=== PATIENT | female | born 1935 | race Caucasian/White ===

== ENCOUNTER 2020-03-10 08:36 | Inpatient (IN) | payer MEDICARE, OTHER, SELFPAY ==
[2020-03-10 08:46] LABS: Add Manual Diff / Slide Review NO; Basophils Absolute Auto 200 /uL (0-100); Basophils Percent Auto 0.7 % (0-2); Eosinophils Absolute Auto 0 /uL (0-450); Eosinophils Percent Auto 0.1 % (2-4); Hematocrit 36.3 % (36-46); Hemoglobin 11.8 g/dL (12.0-16.0); Lymphocytes Absolute Auto 700 /uL (1100-4500); Lymphocytes Percent Auto 3.1 % (25-40); Mean Corpuscular HGB Conc 32.5 % (30-36); Mean Corpuscular Hemoglobin 31.3 PG (26-34); Monocytes Absolute Auto 900 /uL (0-900); Monocytes Percent Auto 4.3 % (3-14); Neutrophils Absolute Auto 20200 /uL (1500-7000); Neutrophils Percent Auto 91.8 % (50-75); Platelet Count 389 X10^3/uL (150-400); Red Blood Cell Count 3.78 X10^6/uL (4.0-5.2); Red Cell Distribution Width 13.4 % (11.6-14.8)
--- NOTE | 2020-03-10 08:46 | DI.CT.S_ITS ---
PROCEDURE: CT STROKE INDICATIONS: right weakness left gaze TECHNIQUE: Noncontrast 4.5 mm thick angled axial sections acquired from the foramen magnum to the vertex, with coronal reformats. For radiation dose reduction, the following was used: automated exposure control, adjustment of mA and/or kV according to patient size. COMPARISON: None. FINDINGS: Image quality: Excellent. CSF spaces: Basal cisterns are patent. A small acute subpleural hematoma is present in the left frontal area. The ventricles are dilated. There is partial effacement of left lateral ventricle Brain: There is a large acute intracranial hematoma in the left frontal lobe measuring 6.5 cm AP 4.6 cm transverse and 7.0 cm cephalocaudal. On the axial images, it appears to be centered in the brain suggesting intraparenchymal hematoma. On the coronal reconstructed images, the hematoma has a lentiform configuration, suggesting the possibility of epidural bleed. There is also subarachnoid hemorrhage with blood product within cerebral sulci. There is prominent mass effect and 5 mm rightward midline shift. There is moderate cerebral volume loss for age, with resultant ventricular and sulcal prominence. There are moderate periventricular and deep white matter chronic small vessel ischemic changes. There is intracranial internal carotid artery atherosclerosis. Skull and face: Calvarium and visualized facial bones appear intact, without suspicious lesions. Sinuses: Visualized sinuses and mastoids are clear. IMPRESSION: 1. A large intracranial hematoma is present in the left frontal area, most likely large intraparenchymal hemorrhage, measuring 6.5 cm AP 4.6 cm transverse and 7.0 cm cephalocaudal. There is also a small subdural hematoma and subarachnoid hemorrhage. There is mass effect and 5 mm rightward midline shift. 2. No skull fractures. The results were discussed with Dr. Evans. This study fulfills neurological imaging criteria for inclusion or exclusion of acute stroke therapies based on available published neurological guidelines. Dictated by: Aliyah Keith M.D. on 03/10/2020 at 8:51 Approved by: Aliyah Keith M.D. on 03/10/2020 at 9:06
[2020-03-10 08:52] VITALS: BP 142/92; PULSE 111; RESP 20; TEMP 36.4; O2SAT 97
[2020-03-10 08:52] LABS: Prothrombin Time 11.7 SECONDS (10.1-12.7)
[2020-03-10 08:55] LABS: PTT Partial Thromboplastin Tim 27 SECONDS (26.4-36.2)
[2020-03-10 08:57] LABS: BUN Creatinine Ratio 28.8 (6-22); Blood Urea Nitrogen 30 mg/dL (7-17); Calcium 9.9 mg/dL (8.4-10.2); Carbon Dioxide 24 mmol/L (22-32); Chloride 101 mmol/L (98-107); Estimated Glomerular Filt Rate 50.6 mL/min (>60); Glucose 208 mg/dL (80-110); HEMOLYSIS < 15 (0-50); Potassium 4.4 mmol/L (3.4-5.1); Sodium 137 mmol/L (137-145)
--- NOTE | 2020-03-10 08:57 | ED_ITS ---
HPI - Neuro Symptoms/Deficit General Chief Complaint: Neuro Symptoms/Deficit Stated Complaint: Stroke Time Seen by Provider: 03/10/20 08:37 Patient History Social History Smoking Status: Unknown if ever smoked Course Orders Ordered: ED Orders 03/10/20 08:38 Urine Drug Screen, Rapid Stat EKG-12 Lead Stat 03/10/20 08:43 Basic Metabolic Panel Stat Complete Blood Count AUTO DIFF Stat Partial Thromboplastin Time Stat Prothrombin Time INR Stat 03/10/20 08:46 CT Stroke Stat 03/10/20 08:52 XR chest 1V Stat XR pelvis 1-2V Stat 03/10/20 08:54 CT cervical spine wo con Stat Sodium Chloride (Normal Saline 0.9%) 1,000 mls @ 150 mls/hr IV CONT BALDEV MDM - Neuro Symptoms/Deficit Lab Data Result diagrams: 03/10/20 08:43 03/10/20 08:43 Labs: Lab Results 03/10/20 03/10/20 Range/Units 08:43 08:43 WBC 22.0 H (4.5-11.0) X10^3/uL RBC 3.78 L (4.0-5.2) X10^6/uL Hgb 11.8 L (12.0-16.0) g/dL Hct 36.3 (36-46) % MCV 96.0 (80-100) fL MCH 31.3 (26-34) PG MCHC 32.5 (30-36) % RDW 13.4 (11.6-14.8) % Plt Count 389 (150-400) X10^3/uL Neut % (Auto) 91.8 H (50-75) % Lymph % (Auto) 3.1 L (25-40) % [place] % (Auto) 4.3 (3-14) % Eos % (Auto) 0.1 L (2-4) % Baso % (Auto) 0.7 (0-2) % Neut # (Auto) 27210 H (0448-3218) /uL Lymph # (Auto) 700 L (7136-1988) /uL [place] # (Auto) 900 (0-900) /uL Eos # (Auto) 0 (0-450) /uL Baso # (Auto) 200 H (0-100) /uL PT 11.7 (10.1-12.7) SECONDS INR 1.0 (0.9-1.3) APTT 27 (26.4-36.2) SECONDS
[2020-03-10 09:00] VITALS: BP 156/91; PULSE 108; RESP 18; O2SAT 97
[2020-03-10 09:12] LABS: Ur Creatinine Normal (Normal); Ur Specific Gravity Normal (Normal); Urine pH Normal (Normal)
[2020-03-10 09:13] LABS: UR Morphine/Opiate cutoff 300 Negative (Negative); Urine Amphetamines Negative (Negative); Urine Barbiturates Negative (Negative); Urine Benzodiazepines Negative (Negative); Urine Cocaine Negative (Negative); Urine MDMA Negative (Negative); Urine Methadone Negative (Negative); Urine Methamphetamines Negative (Negative); Urine Oxycodone Negative (Negative); Urine Phencyclidine Negative (Negative); Urine Tetrahydrocannabinol Negative (Negative); Urine Tricyclic Antidepressant Negative (Negative)
[2020-03-10] MEDS: ONDANSETRON 4 MG/2 ML INJ IV (09:31)
--- NOTE | 2020-03-10 09:38 | PC.NURSE ---
nih scale- a lot of the scale is UN. pt is not able to perform the tasks. md at bedside
--- NOTE | 2020-03-10 09:50 | PC.NURSE ---
0905 Pt is a comfort only patient per Dr. Evans and the family.
--- NOTE | 2020-03-10 11:59 | ED_ITS ---
HPI - Neuro Symptoms/Deficit General Chief Complaint: Neuro Symptoms/Deficit Stated Complaint: Stroke Time Seen by Provider: 03/10/20 08:37 Source: family and EMS Mode of arrival: EMS History of Present Illness HPI Narrative: Patient is a 84-year-old female who presents being found down. She was last seen last evening she lives in independently with only medical history of hypertension. Her neighbor below her her to thought around 630 this morning staff finally got into her room and she presented to the emergency department by 837. She has a gaze to the left and not moving her right side. She is not on any known anti-platelet or anticoagulation medication. Related Data Home Medications Medication Instructions Recorded Confirmed lisinopril 03/10/20 Allergies Allergy/AdvReac Type Severity Reaction Status Date / Time No Known Drug Allergies Allergy Verified 03/10/20 09:30 Review of Systems Review of Systems ROS Unobtainable: Unobtainable due to mental status/LOC Patient History Social History household members: none Smoking Status: Never smoker alcohol intake: current Smoking Status: Unknown if ever smoked Exam Initial Vital Signs Initial Vital Signs: Vital Signs Temperature 97.5 F L 03/10/20 08:52 Pulse Rate 111 H 03/10/20 08:52 Respiratory Rate 20 03/10/20 08:52 Blood Pressure 142/92 H 03/10/20 08:52 Pulse Oximetry 97 03/10/20 08:52 Gen.: Atraumatic HEENT: Pupils equal and reactive gaze to the left no facial droop Neck: No JVD no cervical 10 step-off Lungs: Clear bilaterally Cardiac: Regular rate Abdomen: Soft nontender Extremities: Pelvis stable no gross bony deformity Neurologic: Profound weakness on the right side but not moving left side either. No facial droop case of the left. Initially was able to admitting officer with the left hand and not the right way goals both toes. Course Orders Ordered: Artificial Tears (Artificial Tears) 1 drops EYE-BOTH Q2HR PRN PRN Reason: Dry Eye(s) Sodium Chloride (Normal Saline 0.9%) 1,000 mls @ 150 mls/hr IV CONT BALDEV Last Admin: 03/10/20 09:57 Dose: Not Given Documented by: RSTONE Lorazepam (Ativan) 1 mg IV Q1HR PRN PRN Reason: Agitation/Anxiety Morphine Sulfate (Morphine) 2 mg IV Q30MIN PRN PRN Reason: Pain/Dyspnea Ondansetron HCl (Zofran) 4 mg IV Q4HR PRN PRN Reason: Nausea And Vomiting Scopolamine (Transderm-Scop) 1 patch TOP Q72H PRN PRN Reason: Secretions Discontinued Medications Ondansetron HCl (Zofran) 4 mg IV NOW ONE Stop: 03/10/20 09:07 Last Admin: 03/10/20 09:31 Dose: 4 mg Documented by: TOMMY Vital Signs Vital signs: Vital Signs - 8 hr 03/10/20 08:52 03/10/20 09:00 Temperature 97.5 F L Pulse Rate 111 H 108 H Respiratory Rate 20 18 Blood Pressure 142/92 H Blood Pressure [Left Arm] 156/91 H Pulse Oximetry 97 97 MDM - Neuro Symptoms/Deficit Lab Data Attestation: I reviewed the patient's lab results. Result diagrams: 03/10/20 08:43 03/10/20 08:43 Labs: Lab Results 03/10/20 03/10/20 03/10/20 Range/Units 08:43 08:43 08:43 WBC 22.0 H (4.5-11.0) X10^3/uL RBC 3.78 L (4.0-5.2) X10^6/uL Hgb 11.8 L (12.0-16.0) g/dL Hct 36.3 (36-46) % MCV 96.0 (80-100) fL MCH 31.3 (26-34) PG MCHC 32.5 (30-36) % RDW 13.4 (11.6-14.8) % Plt Count 389 (150-400) X10^3/uL Neut % (Auto) 91.8 H (50-75) % Lymph % (Auto) 3.1 L (25-40) % [place] % (Auto) 4.3 (3-14) % Eos % (Auto) 0.1 L (2-4) % Baso % (Auto) 0.7 (0-2) % Neut # (Auto) 49090 H (6865-4834) /uL Lymph # (Auto) 700 L (5653-0897) /uL [place] # (Auto) 900 (0-900) /uL Eos # (Auto) 0 (0-450) /uL Baso # (Auto) 200 H (0-100) /uL PT 11.7 (10.1-12.7) SECONDS INR 1.0 (0.9-1.3) APTT 27 (26.4-36.2) SECONDS Sodium 137 (137-145) mmol/L Potassium 4.4 (3.4-5.1) mmol/L Chloride 101 (98-107) mmol/L Carbon Dioxide 24 (22-32) mmol/L BUN 30 H (7-17) mg/dL Creatinine 1.04 (0.52-1.04) mg/dL Estimated GFR 50.6 L (>60) mL/min BUN/Creatinine Ratio 28.8 H (6-22) Glucose 208 H (80-110) mg/dL Calcium 9.9 (8.4-10.2) mg/dL U Opiates 300ng/mL cut (Negative) Ur Oxycodone Screen (Negative) Urine Methadone Screen (Negative) Ur Barbiturates Screen (Negative) U Tricyclic Antidepress (Negative) Ur Phencyclidine Scrn (Negative) Ur Amphetamines Screen (Negative) U Methamphetamines Scrn (Negative) Ur MDMA Scrn (Ecstasy) (Negative) U Benzodiazepines Scrn (Negative) Urine Cocaine Screen (Negative) U Marijuana (THC) Screen (Negative) 03/10/20 Range/Units 09:00 WBC (4.5-11.0) X10^3/uL RBC (4.0-5.2) X10^6/uL Hgb (12.0-16.0) g/dL Hct (36-46) % MCV (80-100) fL MCH (26-34) PG MCHC (30-36) % RDW (11.6-14.8) % Plt Count (150-400) X10^3/uL Neut % (Auto) (50-75) % Lymph % (Auto) (25-40) % [place] % (Auto) (3-14) % Eos % (Auto) (2-4) % Baso % (Auto) (0-2) % Neut # (Auto) (4506-7234) /uL Lymph # (Auto) (7329-9005) /uL [place] # (Auto) (0-900) /uL Eos # (Auto) (0-450) /uL Baso # (Auto) (0-100) /uL PT (10.1-12.7) SECONDS INR (0.9-1.3) APTT (26.4-36.2) SECONDS Sodium (137-145) mmol/L Potassium (3.4-5.1) mmol/L Chloride (98-107) mmol/L Carbon Dioxide (22-32) mmol/L BUN (7-17) mg/dL Creatinine (0.52-1.04) mg/dL Estimated GFR (>60) mL/min BUN/Creatinine Ratio (6-22) Glucose (80-110) mg/dL Calcium (8.4-10.2) mg/dL U Opiates 300ng/mL cut Negative (Negative) Ur Oxycodone Screen Negative (Negative) Urine Methadone Screen Negative (Negative) Ur Barbiturates Screen Negative (Negative) U Tricyclic Antidepress Negative (Negative) Ur Phencyclidine Scrn Negative (Negative) Ur Amphetamines Screen Negative (Negative) U Methamphetamines Scrn Negative (Negative) Ur MDMA Scrn (Ecstasy) Negative (Negative) U Benzodiazepines Scrn Negative (Negative) Urine Cocaine Screen Negative (Negative) U Marijuana (THC) Screen Negative (Negative) Point of Care Testing Glucose POC [address] scan - head: Radiologist's Impression: PROCEDURE: CT STROKE INDICATIONS: right weakness left gaze TECHNIQUE: Noncontrast 4.5 mm thick angled axial sections acquired from the foramen magnum to the vertex, with coronal reformats. For radiation dose reduction, the following was used: automated exposure control, adjustment of mA and/or kV according to patient size. COMPARISON: None. FINDINGS: Image quality: Excellent. CSF spaces: Basal cisterns are patent. A small acute subpleural hematoma is pr esent in the left frontal area. The ventricles are dilated. There is partial effacement of left lateral ventricle Brain: There is a large acute intracranial hematoma in the left frontal lobe measuring 6.5 cm AP 4.6 cm transverse and 7.0 cm cephalocaudal. On the axial images, it appears to be centered in the brain suggesting intraparenchymal hematoma. On the coronal reconstructed images, the hematoma has a lentiform configuration, suggesting the possibility of epidural bleed. There is also subarachnoid hemorrhage with blood product within cerebral sulci. There is prominent mass effect and 5 mm rightward midline shift. There is moderate cerebral volume loss for age, with resultant ventricular and sulcal prominence. There are moderate periventricular and deep white matter chronic small vessel ischemic changes. There is intracranial internal carotid artery atherosclerosis. Skull and face: Calvarium and visualized facial bones appear intact, without suspicious lesions. Sinuses: Visualized sinuses and mastoids are clear. IMPRESSION: 1. A large intracranial hematoma is present in the left frontal area, most likely large intraparenchymal hemorrhage, measuring 6.5 cm AP 4.6 cm transverse and 7.0 cm cephalocaudal. There is also a small subdural hematoma and subarachnoid hemorrhage. There is mass effect and 5 mm rightward midline shift. 2. No skull fractures. The results were discussed with Dr. Evans. This study fulfills neurological imaging criteria for inclusion or exclusion of acute stroke therapies based on available published neurological guidelines. Dictated by: Aliyah Keith M.D. on 03/10/2020 at 8: ECG Data Attestation: I personally reviewed and interpreted this ECG as follows: Interpretation: Normal sinus rhythm rate 108 right bundle-branch block noted no ST changes no priors to compare MDM Narrative Medical decision making narrative: Family at bedside family and patient were very clear that no extraordinary measures are to be taken. Comfort measures only. Discharge Plan Departure Patient Disposition: Admitted as Observation Clinical Impression: Subarachnoid hemorrhage, Subdural hematoma Discharge Date/Time: 03/10/20 12:06 Admit Date/Time: 03/10/20 11:10 Admit Provider: Pedro Luis Lipscomb
--- NOTE | 2020-03-10 12:54 | PM.HP.1 ---
History of Present Illness History of Present Illness Date Patient Seen: 03/10/20 Time Patient Seen: 12:54 Chief complaint: Stroke Narrative: Stacie Pickard is an 84 year old female with PMH of HTN who was found down in her apartment this morning. She had been living independently and doing well per family. She was last seen last evening she lives in independently with only medical history of hypertension. Her neighbor below her her to thought around 630 she heard a thud. Patient presented to the ER around 0830. She has a gaze to the left and not moving her right side. She is not on any known anti-platelet or anticoagulation medication. Patient does follow commands but is unable to communicate. Family at bedside to cooberate history along with review of provider notes. In the ER, vitals were notable for mild tachycardia. CT scan showed a large intracranial hematoma in the left frontal area most likely due to a large intraparenchymal hemorrhage measuring 6.5 x 4.6 x 7.0 cm. There is also a small subdural and subarachnoid hemorrhage. There was mass effect and 5 mm of rightward midline shift. There were no skull fractures. Patient was previously very clear on her desire for comfort measures only in this situation, family states that patient would definitely not want a feeding tube. She was admitted under observation status with comfort measures. CT scan will be repeated at 6 hours to see if there is any progression of her bleeding. Patient History Family & Social History Safety & Behavioral: Feels Safe in Current Unwilling to Answer Environment Been Physically Hurt or Unwilling to Answer Threatened By a Person Tobacco & Substance use: Smoking Status Unknown if ever smoked Meds Home Medications and Allergies Home Medications Medication Instructions Recorded Confirmed Type lisinopril 03/10/20 History Allergies Allergy/AdvReac Type Severity Reaction Status Date / Time No Known Drug Allergies Allergy Verified 03/10/20 09:30 Review of Systems Review of Systems ROS: Yes unobtainable due to mental status Exam Vital Signs (past 8 hours): - 03/10/20 08:52 03/10/20 09:00 Temperature 97.5 F L Pulse Rate 111 H 108 H Respiratory Rate 20 18 Blood Pressure 142/92 H Blood Pressure [Left Arm] 156/91 H Pulse Oximetry 97 97 Oxygen Delivery Method Room Air Narrative Exam Narrative: GENERAL APPEARANCE: Well developed, well nourished, elderly female in no acute distress. SKIN: Inspection of the skin reveals no rashes, ulcerations or petechiae. HEENT: Right cheek possible ecchymosis or small hematoma, mucosa is dry, there is no lymphadenopathy, oropharynx is clear. NECK: Supple and symmetric. There was no thyroid enlargement, and no tenderness, or masses were felt. CHEST: Normal AP diameter and normal contour without any kyphoscoliosis. LUNGS: Auscultation of the lungs revealed no wheezes, rhonchi, or rales. CARDIOVASCULAR: There was a tachycardic rate with regular rhythm without any murmurs, gallops, rubs. Peripheral pulses were 2+ and symmetric. ABDOMEN: Soft and nondistended. No ascites was noted. MUSCULOSKELETAL: There were no effusions noted. Unable to assess for pain. EXTREMITIES: No cyanosis, clubbing or edema. NEUROLOGIC: Left gaze bilaterally, pupils equally round and reactive bilaterally. Follows commands on the left side, but unable to speak. She has a right hemiparesis. Unable to assess sensation. No gross facial asymmetry, but patient does resist opening of her left eye, but not her right. Objective ECG Impression: Sinus tachycardia, rate 108, with a right bundle branch block. No evidence of active ischemia. Imaging CT scan - head: Radiologist's impression: IMPRESSION: 1. A large intracranial hematoma is present in the left frontal area, most likely large intraparenchymal hemorrhage, measuring 6.5 cm AP 4.6 cm transverse and 7.0 cm cephalocaudal. There is also a small subdural hematoma and subarachnoid hemorrhage. There is mass effect and 5 mm rightward midline shift. 2. No skull fractures. The results were discussed with Dr. Evans. Labs Result Diagrams: 03/10/20 08:43 03/10/20 08:43 Labs: Laboratory Results - last 24 hr 03/10/20 03/10/20 03/10/20 08:43 08:43 08:43 WBC 22.0 H RBC 3.78 L Hgb 11.8 L Hct 36.3 MCV 96.0 MCH 31.3 MCHC 32.5 RDW 13.4 Plt Count 389 Neut % (Auto) 91.8 H Lymph % (Auto) 3.1 L [place] % (Auto) 4.3 Eos % (Auto) 0.1 L Baso % (Auto) 0.7 Neut # (Auto) 08372 H Lymph # (Auto) 700 L [place] # (Auto) 900 Eos # (Auto) 0 Baso # (Auto) 200 H PT 11.7 INR 1.0 APTT 27 Sodium 137 Potassium 4.4 Chloride 101 Carbon Dioxide 24 BUN 30 H Creatinine 1.04 Estimated GFR 50.6 L BUN/Creatinine Ratio 28.8 H Glucose 208 H Calcium 9.9 U Opiates 300ng/mL cut Ur Oxycodone Screen Urine Methadone Screen Ur Barbiturates Screen U Tricyclic Antidepress Ur Phencyclidine Scrn Ur Amphetamines Screen U Methamphetamines Scrn Ur MDMA Scrn (Ecstasy) U Benzodiazepines Scrn Urine Cocaine Screen U Marijuana (THC) Screen 03/10/20 09:00 WBC RBC Hgb Hct MCV MCH MCHC RDW Plt Count Neut % (Auto) Lymph % (Auto) [place] % (Auto) Eos % (Auto) Baso % (Auto) Neut # (Auto) Lymph # (Auto) [place] # (Auto) Eos # (Auto) Baso # (Auto) PT INR APTT Sodium Potassium Chloride Carbon Dioxide BUN Creatinine Estimated GFR BUN/Creatinine Ratio Glucose Calcium U Opiates 300ng/mL cut Negative Ur Oxycodone Screen Negative Urine Methadone Screen Negative Ur Barbiturates Screen Negative U Tricyclic Antidepress Negative Ur Phencyclidine Scrn Negative Ur Amphetamines Screen Negative U Methamphetamines Scrn Negative Ur MDMA Scrn (Ecstasy) Negative U Benzodiazepines Scrn Negative Urine Cocaine Screen Negative U Marijuana (THC) Screen Negative Assessment & Plan Assessment & Plan narrative: Stacie Pickard is an 84 year old female with PMH of HTN who was found down in her apartment this morning. She was found to have a large intraparenchymal hematoma on initial CT imaging. Given patient's prior wishes, we will proceed forward with comfort as the primary goal. Family also stated that a feeding tube would not be in her interest as well. 1. Intraparenchymal hemorrhage/hematoma, acute, present on admission - CT shows: A large intracranial hematoma is present in the left frontal area, most likely large intraparenchymal hemorrhage, measuring 6.5 cm AP 4.6 cm transverse and 7.0 cm cephalocaudal. There is also a small subdural hematoma and subarachnoid hemorrhage. There is mass effect and 5 mm rightward midline shift. -comfort care orders have been placed. -will repeat CT at 6 hours to assess if progression. Will help planning purposes for disposition and family's ability to plan. -GCS of 10 on admission, fixed lateral gaze. 2. subdural hematoma, acute, present on admission 3. subarachnoid hemorrhage, acute, present on admission 4. HTN, chronic - will hold home BP medications. (lisinopril 5 mg daily) daily vitals for focus on comfort Code: DNR, surrogate decision maker is family whom are present at bedside. DVT: HOLD for intracranial hemorrhage Dispo: Admitted under inpatient status as patient's passing appears imminent at this time given the size of her bleeding. Scores GCS [place] coma scale eye opening: To sound Asif coma scale verbal response: None Asif coma scale motor response: Obey commands Asif coma scale total score: 10
[2020-03-10 13:06] VITALS: BMI 43.4
--- NOTE | 2020-03-10 15:00 | DI.CT.S_ITS ---
PROCEDURE: CT HEAD/BRAIN WO CON INDICATIONS: repeat CT for assessment intracranial bleed TECHNIQUE: Noncontrast 4.5 mm thick angled axial sections acquired from the foramen magnum to the vertex, with coronal and sagittal reformats. For radiation dose reduction, the following was used: automated exposure control, adjustment of mA and/or kV according to patient size. COMPARISON: Merged With [facility], CT, CT STROKE, 03/10/2020, 8:32. FINDINGS: Image quality: Diagnostic. CSF spaces: Basal cisterns are patent. No extra-axial fluid collections. Ventricles are prominent in size with corresponding parenchymal volume loss. Brain: There continues to be a large area of parenchymal hemorrhage involving the left frontal lobe that measures approximately 7.4 x 4.7 x 6.2 cm (previously measuring approximately 7.7 x 4.5 x 6.4 cm when remeasured in a similar fashion). Surrounding parenchymal edema is identified, similar to the prior study. There is approximately 5-6 mm of rightward midline shift, best appreciated on the coronal images (image 18, series 4), which is unchanged. No new areas of intraparenchymal hemorrhage are evident. However, a small amount of blood is identified within the dependent aspects of the bilateral lateral ventricles. Extensive confluent areas of low attenuation are seen within the periventricular and deep white matter of the supratentorial brain. Skull and face: Calvarium and visualized facial bones are intact, without suspicious lesions. Sinuses: Visualized sinuses and mastoids are clear. IMPRESSION: 1. No significant change in the size of the large parenchymal hemorrhage involving the left frontal lobe. The degree of midline shift is similar to the prior study. 2. Minimal blood is identified within the dependent aspect of the lateral ventricles. 3. No new parenchymal hemorrhages. 4. Extensive chronic small vessel ischemic changes and parenchymal volume loss. Dictated by: Ehsan Coates M.D. on 03/10/2020 at 14:38 Approved by: Ehsan Coates M.D. on 03/10/2020 at 14:47
--- NOTE | 2020-03-10 19:10 | PC.NURSE ---
pt comfortable and sleeping. family at bedside. miguel patent and to gravity. q2turn. oral care at bedside, family agreed they would do it.
[2020-03-10 20:50] VITALS: PULSE 107; RESP 18; O2SAT 90
[2020-03-11 01:45] VITALS: PULSE 100; RESP 20; O2SAT 94
--- NOTE | 2020-03-11 02:37 | PC.NURSE ---
Patient seen and assessed at 0130. Has eyes open but is not responding verbally. Is moving left extremities and did try to grasp with left hand but is weak; right extremities are flaccid. Able to follow some commands. Shallow, non-labored respirations but breath sounds very diminished; RA sat 94%. HRR with rate of 100 apically. BT hypoactive; is incontinent of soft, brown stool. Buttock crease and skin around rectum are reddened; will apply barrier cream. Indwelling catheter is patent. Needing to be repositioned q2h. Is NPO and on comfort care; oral care provided when repositioned. FLACC score is 0 even with movement. Fall risk score is high and bed alarm is activated.
[2020-03-11] MEDS: SODIUM CHLORIDE 0.9% FLUSH 10 ML IV ×3 (09:45→22:25)
--- NOTE | 2020-03-11 10:51 | PM.PN.1 ---
Subjective Subjective Date Patient Seen: 03/11/20 Time Patient Seen: 10:52 Interval history: Stacie Pickard is an 84 year old female with PMH of HTN who was found down in her apartment. CT scan showed a large intracranial hematoma in the left frontal area most likely due to a large intraparenchymal hemorrhage measuring 6.5 x 4.6 x 7.0 cm. There was also a small subdural and subarachnoid hemorrhage. There was mass effect and 5 mm of rightward midline shift. There were no skull fractures. Patient was previously very clear on her desire for comfort measures only in this situation, family states that patient would definitely not want a feeding tube. She was admitted under inpatient status given presumed imminent status. Patient has had no change in function, but appears more lethargic per family at bedside today and more out of it. Repeat CT head at 6 hours showed an essentially stable hematoma. Have asked for palliative care consultation with Desi García today. Plan is ultimately for hospice, which family is trying to prepare for at this time. Exam Vital Signs (past 8 hours): Oxygen Delivery Method Room Air Oxygen Flow Rate 0 Narrative Exam Narrative: GENERAL APPEARANCE: Well developed, well nourished, elderly female in no acute distress. SKIN: Inspection of the skin reveals no rashes, ulcerations or petechiae. HEENT: Right cheek possible ecchymosis or small hematoma, mucosa is dry, there is no lymphadenopathy, oropharynx is clear. NECK: Supple and symmetric. There was no thyroid enlargement, and no tenderness, or masses were felt. CHEST: Normal AP diameter and normal contour without any kyphoscoliosis. LUNGS: Auscultation of the lungs revealed no wheezes, rhonchi, or rales. CARDIOVASCULAR: There was a regular rate with regular rhythm without any murmurs, gallops, rubs. Peripheral pulses were 2+ and symmetric. ABDOMEN: Soft and nondistended. No ascites was noted. MUSCULOSKELETAL: There were no effusions noted. Unable to assess for pain. EXTREMITIES: No cyanosis, clubbing or edema. NEUROLOGIC: Left gaze bilaterally, pupils equally round and reactive bilaterally. Follows commands on the left side, but unable to speak. She has a right hemiparesis. Unable to assess sensation. No gross facial asymmetry. Objective Labs Result Diagrams: 03/10/20 08:43 03/10/20 08:43 Assessment & Plan Assessment & Plan narrative: Stacie Pickard is an 84 year old female with PMH of HTN who was found down in her apartment. She was found to have a large intraparenchymal hematoma on initial CT imaging. Given patient's prior wishes, we will proceed forward with comfort as the primary goal. Family also stated that a feeding tube would not be in her interest as well. 1. Intraparenchymal hemorrhage/hematoma, acute, present on admission - CT shows: A large intracranial hematoma is present in the left frontal area, most likely large intraparenchymal hemorrhage, measuring 6.5 cm AP 4.6 cm transverse and 7.0 cm cephalocaudal. There is also a small subdural hematoma and subarachnoid hemorrhage. There is mass effect and 5 mm rightward midline shift. -comfort care orders have been placed. -repeat CT at 6 hours showed a very slight increase in the size of her hematoma, but was essentially stable per radiology. She has slightly worsening lethargy but no new neurological deficits on exam today. -GCS of 10 on admission, fixed lateral gaze. -have asked for palliative consultation today, appreciate time and recommendations as well as family support. 2. subdural hematoma, acute, present on admission 3. subarachnoid hemorrhage, acute, present on admission 4. HTN, chronic - will hold home BP medications. (lisinopril 5 mg daily) daily vitals for focus on comfort Code: DNR, surrogate decision maker is family whom are present at bedside. DVT: HOLD for intracranial hemorrhage Dispo: Admitted under inpatient status as patient's passing appears imminent at this time given the size of her bleeding and worsening lethargy. Currently working on arranging hospice given prior wishes. Quality VTE Deep Vein Thrombosis/Pulmonary Embolism Present on Admission: No
--- NOTE | 2020-03-11 12:49 | PC.NURSE ---
Day Shift Dressing was saturated on assessment this AM. Notified MD who looked at dressings. stated unless they are leaking she would like them to remain in place until tomorrow. ice on incisions. pt refused PT, will not drink water, only OJ. minimal PO intake. Per conversation with his POA, he takes awhile to recover from anesthesia.
[2020-03-11] MEDS: MORPHINE 2 MG/ML INJ IV (16:36)
[2020-03-11] MEDS: SCOPOLAMINE 1 PATCH TOP (16:37)
[2020-03-11 18:36] LABS: COVID19 -Nasal RAPID Negative (Negative)
--- NOTE | 2020-03-11 18:41 | PC.NURSE ---
Addendum entered by Meri Sellers R.N. 03/11/20 23:50: Late entry: While patient's family members were present, a blister rust eradicator visit was offered and family declined. Addendum entered by Meri Sellers R.N. 03/11/20 23:41: Pt has been quiet without any signs of distress or discomfort since morphine administration. FLACC=0. Opens eyes to sound and movement in room. Oral care by ASPHALT SPREADER and repositioning for comfort and to offload pressure points. Addendum entered by Meri Sellers R.N. 03/11/20 19:57: Repositioned onto right side. Smear of stool only. Opens eyes and moves left hand/arm. Soft music and lighting in room. Quickly closes eyes and assumes resting state as prior to move. Tomas with alexandra colored urine. Original Note: Pt with eyes open lying quietly in bed. Pt's daughter and son are present in pt's room. Discussion with family re treating pt's pain/anxiety with medications and both parties acknowledge pt's comfort is goal. Pt occasional facial grimace and movement of left hand. Pt is nonverbal. Daughter reports has heard gurgling from pt. Placed scopolamine patch behind pt's right ear and administered 2 mg iv morphine. conference planner has seen pt and family this evening. Rapid covid screening test per telecommunications network planner and per Dr. Lipscomb's verbal order. Covid screening completed and sent to lab.
--- NOTE | 2020-03-12 01:00 | PC.NURSE ---
Patient continues to be non verbal but does open eyes but does not track. Respirations shallow and non labored; breath sounds very diminished throughout and RA sat 90%. HRR with rate of 108 apical. BT hypoactive; has been incontinent of stool. Indwelling catheter is patent. Is being repositioned q2h as not moving self. Weak process camera operator in left hand but noted to still be moving left extremities; right extremities are flaccid. No change in skin condition. FLACC is 0. Fall risk score is high and bed alarm is activated.
[2020-03-12 01:08] VITALS: PULSE 108; RESP 24; TEMP 36.6; O2SAT 90
--- NOTE | 2020-03-12 07:59 | P.DS_ITS ---
History of Present Illness History of Present Illness Date Patient Seen: 03/10/20 Chief complaint: Stroke Narrative: Written by Dr. Lipscomb: Stacie Pickard is an 84 year old female with PMH of HTN who was found down in her apartment this morning. She had been living independently and doing well per family. She was last seen last evening she lives in independently with only medical history of hypertension. Her neighbor below her her to thought around 630 she heard a thud. Patient presented to the ER around 0830. She has a gaze to the left and not moving her right side. She is not on any known anti-platelet or anticoagulation medication. Patient does follow commands but is unable to communicate. Family at bedside to cooberate history along with review of provider notes. In the ER, vitals were notable for mild tachycardia. CT scan showed a large intracranial hematoma in the left frontal area most likely due to a large intraparenchymal hemorrhage measuring 6.5 x 4.6 x 7.0 cm. There is also a small subdural and subarachnoid hemorrhage. There was mass effect and 5 mm of rightward midline shift. There were no skull fractures. Patient was previously very clear on her desire for comfort measures only in this situation, family states that patient would definitely not want a feeding tube. She was admitted under observation status with comfort measures. CT scan will be repeated at 6 hours to see if there is any progression of her bleeding. Discharge Providers Provider Date of admission: 03/10/20 11:10 Consults: 03/11/20 18:57 Consult to Dietitian, Adult Routine Comment: Reason For Exam: end of life care; no consult needed. Ezekiel score Discharge provider: Erma Duron DO Summary Hospital Course Discharge Diagnosis: 1.? ?Acute intraparenchymal hemorrhage, subdural hematoma and subarachnoid hemorrhage with mass effect and midline shift, present on admission.? Active. 2. Palliative Care. 3. Hypertension, chronic, present on admission.? Stable. Hospital Course: Stacie Pickard is an 84-year-old female with a past medical history significant for hypertension who was found down in her apartment and taken to the ED where she was found to have a large intraparenchymal hematoma on CT. 1.? Acute intraparenchymal hemorrhage, subdural hematoma and subarachnoid hem orrhage with mass effect and midline shift, present on admission.? Active. -CT brain without contrast demonstrated large intracranial hematoma in left? ?Frontal area, most likely large intraparenchymal hemorrhage, measuring 6.5 cm AP, 4.6 cm transverse and 7.0 cm cephaliocaudal. also small subdural hematoma and subarachnoid hemorrhage.? There is mass effect and a 5 mm rightward midline shift.? No skull fractures.-Repeat CT brain without contrast at 6 hours? demonstrated a very slight increase in the size of her hematoma, but was essentially stable per radiology.?? -Initial GCS 10 ( opens eyes to sound, no verbal response, and obeys commands). Patient has persistent fixed lateral gaze, right-sided hemiparesis, cannot eat or swallow, and is nonverbal.-Due to patient's prior wishes she has been made palliative care and will discharge to senior living facility private pay with hospice. 2. Palliative Care. -Patient is DNR/ DNI and according to previous wishes would not want any unnecessary medical intervention or surgically inserted feeding tube.? Patient's family has made patient palliative care according to patient's previously stated wishes care and due to above intracranial, subdural and subarachnoid hemorrhage.?? -Continue comfort care medications including:? Morphine 2 mg IV every 30 minutes or morphine concentrate 10 mg SL every 1 hour as needed for pain or air hunger, lorazepam 1 mg IV or PO every 1 hours needed for anxiety or agitation, ondansetron 4 mg SL or IV every 4 hours as needed for nausea, atropine gtt? every 2 hours as needed for excessive secretions, and scopolamine patch every 72 hours as needed for excessive secretions.-Continue Tomas catheter for comfort.? 3. Hypertension, chronic, present on admission.? Stable. -Held home antihypertensives as patient is palliative. Exam Vital Signs (past 8 hours): - 03/12/20 01:08 Temperature 97.8 F Pulse Rate 108 H Respiratory Rate 24 Pulse Oximetry 90 L Oxygen Delivery Method Room Air Oxygen Flow Rate 0 Objective Labs Result Diagrams: 03/10/20 08:43 03/10/20 08:43 Labs: Laboratory Results - last 24 hr 03/11/20 17:44 COVID-19 PCR Negative Discharge Plan Discharge Plan Patient Disposition: SNF Discharge orders & Medications Prescriptions: No Action lisinopril 5 mg Tablet 5 mg PO DAILY RF: 0 Quality VTE Deep Vein Thrombosis/Pulmonary Embolism Present on Admission: No
[2020-03-12] MEDS: SODIUM CHLORIDE 0.9% FLUSH 10 ML IV (09:13)
--- NOTE | 2020-03-12 09:27 | CM.IDA ---
Initial DCP Assessment Note: Patient is an 84 yo female, resident at [facility] in [place]. Patient presents after brain bleed and per advanced directives and family wishes, is DNR and comfort care. PCP: Not Listed Payer: JARAD/Francie Reviewed chart, met w/patient's family, dtr and son yesterday, introduced role and reviewed plan. Dtr Sarah lives in [place] w/her spouse and son lives in [facility]. Family explain their Dad had been at [facility] in Oct, w/Hospice (family paying room and board privately) so are somewhat familiar w/process. Discussed SNF (likely private pay) w/Hospice vs home to [facility] w/Hospice and private paid cgs. Family are in agreement that patient should be on hospice at this time, and they would like patient to DC to SNF, not back to [facility]. SNF choices are as follows: 1. [facility] 2. [facility] 3. [facility] This SOAKING TANK WORKER notified Dr Lipscomb immediately yesterday that Palliative Care consult may not be required today (?) since family seems confident about steps moving forward. Placed call to [facility] yesterday 03.11.20; had to leave messages throughout the day. Loreta monteiro [facility] explains via VM that [facility] will not be able to open service for at least 7-8 days. Updated family and they confirm once again they would like SNF at [place]. Placed call to [facility] 6, they have COVID + residents and are not admitting new patients. Placed call to [facility], faxed referral, Ursula will review. Placed call to [facility], spoke w/ red hat linux administrator Raji Chaidez, he explained they have beds, are accepting new admissions, he will review clinical packet today, 03.12.20. It remains unknown whether these facilities will be able to use MCR A temporarily, then charge family privately. Family agreeable to private payment, [facility], approx $357 daily rate (private room for COVID-19 quarantine purposes). Patient will likely need to transport via BLS. Following closely. PASRR completed. GIANA Arce Discharge Planning/Care Management CM Discharge Assessment Start: 03/11/20 15:34 Freq: Status: Active Protocol: Document 03/12/20 09:20 LILIBETH (Rec: 03/12/20 09:27 LILIBETH [id number]) Discharge Planning Assessment Assigned Director Index GIANA Jensen DPOA/Assigned Designee Name Sarah Parkerroxana sanders Contact Information [phone], ( [place] [employer] [place] [employer] Advance Directives? Yes Advance Directives on File Yes History Provided By Family Member,Medical Record Prior Living Arrangements Apartment/Condo Household Members none Facility Name Admitted From: [facility] Independent with ADL's Yes Is patient alert and oriented? No Patient/Family Preference [facility] Barriers to Discharge Yes Comment Lives at [facility], family would like SNF for comfort management Discharge Plan [facility] Transportation Arrangement Likely BLS Referrals Initiated [facility]
[2020-03-12] MEDS: MORPHINE 2 MG/ML INJ IV ×4 (11:58→19:30)
--- NOTE | 2020-03-12 14:28 | P.PN_ITS ---
Subjective Subjective Date Patient Seen: 03/12/20 Interval history: Patient is comatose, obtunded and nonresponsive. She exhibits intermittent Dex-Salazar breathing. HPI review of systems unobtainable due to patient's status. Continue palliative care. Exam Vital Signs (past 8 hours): Oxygen Delivery Method Room Air Oxygen Flow Rate 0 Narrative Exam Narrative: General: Elderly female lying in bed, comatose and unresponsive, appears comfortable. HEENT: Normocephalic. External ears without defect. Oropharynx with dry mucosa. Neck: No jugular venous distension. Cardiovascular: Regular rate and rhythm without murmurs, rubs, or gallops appreciated. Pulmonary: Clear to auscultation bilaterally in anterior lung camacho without crackles, wheezes, or rhonchi. Intermittent Dex-Salazar breathing. Abdomen: Soft, bowel sounds, hypoactive, nondistended. Extremities: No clubbing, cyanosis, or edema. Skin: Normal temperature, turgor, and texture; no rash, ulcers, or subcutaneous nodules appreciated. Objective Labs Result Diagrams: 03/10/20 08:43 03/10/20 08:43 Labs: Laboratory Results - last 24 hr 03/11/20 17:44 COVID-19 PCR Negative Assessment & Plan Assessment & Plan narrative: Stacie Pickard is an 84-year-old female with a past medical history significant for hypertension who was found down in her apartment and taken to the ED where she was found to have a large intraparenchymal hematoma on CT. 1.? ?Acute intraparenchymal hemorrhage, subdural hematoma and subarachnoid hemorrhage with mass effect and midline shift, present on admission.? Active. -CT brain without contrast demonstrated large intracranial hematoma in left? ?Frontal area, most likely large intraparenchymal hemorrhage, measuring 6.5 cm AP, 4.6 cm transverse and 7.0 cm cephaliocaudal. also small subdural hematoma and subarachnoid hemorrhage.? There is mass effect and a 5 mm rightward midline shift.? No skull fractures. -Repeat CT brain without contrast at 6 hours? demonstrated a very slight increase in the size of her hematoma, but was essentially stable per r adiology.?? -Initial GCS 10 (opens eyes to sound, no verbal response, and obeys commands). Patient has persistent fixed lateral gaze, right-sided hemiparesis, cannot eat or swallow, and is nonverbal. -Due to patient's prior wishes she has been made palliative care and will [facility] with [facility]. 2. Palliative Care. -Patient is DNR/DNI and according to previous wishes would not want any unnecessary medical intervention or surgically inserted feeding tube.? Patient's family has made patient palliative care according to patient's previously stated wishes care and due to above intracranial, subdural and subarachnoid hemorrhage.?? -Continue comfort care medications including:? Morphine 2 mg IV every 30 minutes or morphine concentrate 10 mg SL every 1 hour as needed for pain or air hunger, lorazepam 1 mg IV or PO every 1 hours needed for anxiety or agitation, ondansetron 4 mg SL or IV every 4 hours as needed for nausea, atropine gtt? every 2 hours as needed for excessive secretions, and scopolamine patch every 72 hours as needed for excessive secretions. -Continue Tomas catheter for comfort.? 3. Hypertension, chronic, present on admission.? Stable. -Held home antihypertensives. Code status: DNR/DNI, surrogate decision maker is family whom are present at bedside. VTE prophylaxis: Contraindicated due to intracranial hemorrhage Disposition: Patient will likely discharge to [facility] for continued palliative care tomorrow. Quality VTE Deep Vein Thrombosis/Pulmonary Embolism Present on Admission: No
--- NOTE | 2020-03-12 14:50 | CM.DPNOTE ---
DCP Cont: [facility] [phone]. Inevitably, [facility] has accepted patient for admission tomorrow, 03.13.20. Raji explained that as long as Hospice service has not opened, he can use patient's MCR A and family would not need to pay privately. If patient does has Hospice service, the room rate would be $436 daily (private room cost). Explained above to patient's son Jonny and dtr Sarah at bedside and they felt relieved to hear [facility] had a bed for patient tomorrow, they requested she be transported via BLS. Discussed that there was potential for out of pocket cost of both SNF stay and BLS and this was not of concern to the family. They were prepared to pay privately at [facility] as needed. Family aware that [facility] still would not be available for at least a week to open care. Spoke w/Dr Duron who explained the decline process from this brain bleed is unpredictable, patient could stabilize enough for DC to SNF tomorrow, or could not survive the evening. Dr Duron expects to keep patient admitted if she is expected to pass w/in 24 hours. Following closely for coordination of safe DCP. BLS will need to be arranged Saturday, PASRR has been completed. Coordination at [facility] will be w/Raji P# [phone]. GIANA Arce
--- NOTE | 2020-03-12 17:55 | PC.NURSE ---
Addendum entered by Mally Blandon R.N. 03/12/20 19:57: Have medicated now 3 times this shift for pain. Family is at bedside and is very attentive to patients eeds and assuring her comfort. The last time I medicated her, the aptient was not in distress. The daughter was asking for something stronger. I assured her that we would give her what she needed but did not want to overwhelm her level of tolerance. Original Note: Patient is not responding to verbal cues, but she is still squeezing her daughter's hand and has showed signs of pain thru grimacing and flinching. She has been medicated once so far with Morphine IV. Daughter is performing oral care frequently nd puttting balm on her lips.
[2020-03-12 18:19] VITALS: TEMP 36.6
[2020-03-13] MEDS: MORPHINE 2 MG/ML INJ IV ×11 (00:53→23:42)
[2020-03-13] MEDS: SODIUM CHLORIDE 0.9% FLUSH 10 ML IV ×5 (00:54→23:43)
[2020-03-13 01:00] VITALS: PULSE 79; RESP 20; TEMP 36.2; O2SAT 95
--- NOTE | 2020-03-13 01:27 | PC.NURSE ---
Patient status unchanged. Still nonverbal but will open eyes. Moving left extremities but flaccid right extremities. Respirations shallow and breath sounds diminished; RA sat 95%. HRR. BT present and abdomen is soft. Indwelling catheter is patent but has had low urine output. Is being repositioned q2h and provided oral care. Son, Jonny, rooming in. Patient has FLACC of 0 but son requests Morphine be given to keep patient comfortable (feels her breathing has changed) so medicated with Morphine. Bed alarm is on at RN discretion.
--- NOTE | 2020-03-13 12:29 | P.PN_ITS ---
Subjective Subjective Date Patient Seen: 03/13/20 Interval history: The patient is resting in bed and appears mildly uncomfortable. Upon entering the room the patient is alert with a left lateral gaze. She is mildly flushed and diaphoretic. The patient moves her left arm and squeezes her daughter Sarah's hand when asked if she is in pain. Plan to increase morphine and lorazepam for palliation. The patient's neurological presentation is quite variable and at times she is less alert and exhibits Dex-Salazar breathing. Exam Vital Signs (past 8 hours): Oxygen Delivery Method Room Air Oxygen Flow Rate 0 Narrative Exam Narrative: General: Elderly female lying in bed, mildly flushed and mildly diaphoretic with variable alertness and breathing. HEENT: Normocephalic. External ears without defect. Oropharynx with dry mucosa. Neck: No jugular venous distension. Cardiovascular: Regular rate and rhythm without murmurs, rubs, or gallops appreciated. Pulmonary: Clear to auscultation bilaterally in anterior lung camacho without crackles, wheezes, or rhonchi. Intermittent Dex-Salazar breathing. Abdomen: Soft, bowel sounds hypoactive, nondistended. Extremities: No clubbing, cyanosis, or edema. Skin: Normal temperature, turgor, and texture; no rash, ulcers, or subcutaneous nodules appreciated. Objective Labs Result Diagrams: 03/10/20 08:43 03/10/20 08:43 Assessment & Plan Assessment & Plan narrative: Stacie Pickard is an 84-year-old female with a past medical history significant for hypertension who was found down in her apartment and taken to the ED where she was found to have a large intraparenchymal hematoma on CT. 1. Acute intraparenchymal hemorrhage, subdural hematoma and subarachnoid hemorrhage with mass effect and midline shift, present on admission. Active. -CT brain without contrast demonstrated large intracranial hematoma in left Frontal area, most likely large intraparenchymal hemorrhage, measuring 6.5 cm AP, 4.6 cm transverse and 7.0 cm cephaliocaudal. also small subdural hematoma an d subarachnoid hemorrhage. There is mass effect and a 5 mm rightward midline shift. No skull fractures. -Repeat CT brain without contrast at 6 hours demonstrated a very slight increase in the size of her hematoma, but was essentially stable per radiology. -Initial GCS 10 (opens eyes to sound, no verbal response, and obeys commands). Patient has persistent fixed lateral gaze, right-sided hemiparesis, cannot eat or swallow, and is nonverbal. -Due to patient's prior wishes she has been made palliative care [facility]. 2. Palliative Care. -Patient is DNR/DNI and according to previous wishes would not want any unnecessary medical intervention or surgically inserted feeding tube. Patient's family has made patient palliative care according to patient's previously stated wishes care and due to above intracranial, subdural and subarachnoid hemorrhage. -Continue comfort care medications including: Morphine 2 mg IV every 30 minutes or morphine concentrate 10 mg SL every 1 hour as needed for pain or air hunger, lorazepam 1 mg IV or PO every 1 hours needed for anxiety or agitation, ondansetron 4 mg SL or IV every 4 hours as needed for nausea, atropine gtt every 2 hours as needed for excessive secretions, and scopolamine patch every 72 hours as needed for excessive secretions. -Continue Tomas catheter for comfort. 3. Hypertension, chronic, present on admission. Stable. -Held home antihypertensives. Code status: DNR/DNI, surrogate decision maker is family whom are present at bedside. VTE prophylaxis: Contraindicated due to intracranial hemorrhage Disposition: The patient now appears imminent and will likely in the hospital in the next 24-48 hours. Quality VTE Deep Vein Thrombosis/Pulmonary Embolism Present on Admission: No
--- NOTE | 2020-03-13 12:31 | CM.DPC ---
DCP/continued: Reviewed chart. Spoke with provider and nursing staff in AM rounds. Current plan is for patient to remain hospitalized today. Provider and nursing staff do not anticipate patient will live much longer. Patient on comfort care with active labored breathing. Previous plan was for patient to go to [facility] for continued comfort measures under her Medicare part A benefit. Provider does not feel that will be necessary at this time. Spoke with RN/Apoorva, daughter at bedside. No CM needs identified at this time. P: CM team to re-access in AM in needed. GIANA Huitron
[2020-03-13 12:35] VITALS: PULSE 73; O2SAT 93
--- NOTE | 2020-03-13 13:14 | PC.NURSE ---
Pt experiencing increase in periods of apnea. Family reporting increasing symptoms of pain (restlessness, grimacing). Medicated w/2mg IV morphine PRN w/good results. Pt still producing small amt of urine. Family present a bedside - requesting no assessments done to assure pt comfort.
--- NOTE | 2020-03-13 16:56 | PC.NURSE ---
Addendum entered by Mally Blandon R.N. 03/13/20 18:38: Agonal breathing with facial grimacing and clenched fists. edicated with Morphine IV. Now resting comfortably but agonal breaths appear more frequently and lasting longer. Original Note: Resting comfortably in bed, mouth breathing regular breaths. Daughter at bedside.
[2020-03-14] MEDS: MORPHINE 2 MG/ML INJ IV ×8 (06:38→18:07)
[2020-03-14] MEDS: SODIUM CHLORIDE 0.9% FLUSH 10 ML IV ×4 (10:10→18:17)
--- NOTE | 2020-03-14 10:47 | PC.NURSE ---
Pt continues to have periods of apnea/slow shallow breathing. Family alerting this RN to any discomfort/pain they notice w/pt. Medicating w/2mg Morphine w/good results.
[2020-03-14] MEDS: LORazepam 2 MG/ML INJ 1 MG IV ×3 (11:51→14:37)
[2020-03-14] MEDS: ATROPINE 1% OPHTH 2 DROPS SL ×4 (13:29→21:45)
[2020-03-14] MEDS: MORPHINE 4 MG/ML INJ IV (14:38)
--- NOTE | 2020-03-14 16:30 | CM.DPNOTE ---
DCP/continued: Placed call to [facility] this AM re: bed? Received return call back from Elizabeth indicating that they could not accept because patient was OBS status? Clarified with Elizabeth that [employer]PERVISOR [employer] understanding was that patient had already been accepted? Elizabeth reports No she has not. Status verified. Patient is inpatient as of 03-10-20. Retrieved SUPERVISOR [employer] note, dated 03-12-20, read note to Elizabeth indicating that patient was accepted by [facility], and expected to transfer on Saturday03-13-20. However, SUPERVISOR PLASTER[employer] attempted to call [facility] on Saturday and no return call received until late in the afternoon. VM left was not that facility had accepted, but were requesting call back. Per provider and nursing staff on Saturday patient unstable to transfer. Staff report patient nearing and most likely will not survive trip to [place] via BLS. Therefore, search for bed and/or re-attempt at [facility] for that day cancelled. Updated notes, faxed to Elizabeth at [facility] today per facility request. Elizabeth reports that they can accept patient tomorrow 03-15-20 if bed still needed. [facility] staff and provider notified. Spoke with RN/Ginette whom confirms that patient most likely will not make it through the night. SUPERVISOR [employer]ERING to check on status in AM. If appropriate will transfer to [facility] per original plan. Spoke also to D[facility]en at [facility] they have no near future openings for home or facility start date. P: Pending. GIANA Huitron
--- NOTE | 2020-03-14 17:53 | PM.PN.1 ---
Subjective Subjective Date Patient Seen: 03/14/20 Interval history: Patient is comatose, obtunded and nonresponsive. She continues to exhibit intermittent Dex-Salazar breathing with shallower breathing, more frequent and longer apneic episodes. Patient appears rather imminent and unstable for transport. HPI review of systems unobtainable due to patient's status. Continue palliative care. Exam Vital Signs (past 8 hours): Oxygen Delivery Method Room Air Oxygen Flow Rate 0 Narrative Exam Narrative: General: Elderly female lying in bed, comatose and unresponsive, appears comfortable. HEENT: Normocephalic. External ears without defect. Eyes open with left lateral gaze. Oropharynx with dry mucosa. Neck: No jugular venous distension. Cardiovascular: Regular rate and rhythm without murmurs, rubs, or gallops appreciated. Pulmonary: Clear to auscultation bilaterally in anterior lung camacho without crackles, wheezes, or rhonchi. Intermittent Dxe-Salazar breathing, more shallow breathing and longer apneic episodes. Abdomen: Soft, bowel sounds, hypoactive, nondistended. Extremities: No clubbing, cyanosis, or edema. Skin: Normal temperature, turgor, and texture; no rash, ulcers, or subcutaneous nodules appreciated. Objective Labs Result Diagrams: 03/10/20 08:43 03/10/20 08:43 Assessment & Plan Assessment & Plan narrative: Stacie Pickard is an 84-year-old female with a past medical history significant for hypertension who was found down in her apartment and taken to the ED where she was found to have a large intraparenchymal hematoma on CT. 1. Acute intraparenchymal hemorrhage, subdural hematoma and subarachnoid hemorrhage with mass effect, midline shift, and cerebral compression, present on admission. Active. -CT brain without contrast demonstrated large intracranial hematoma in left Frontal area, most likely large intraparenchymal hemorrhage, measuring 6.5 cm AP, 4.6 cm transverse and 7.0 cm cephaliocaudal. also small subdural hematoma and subarachnoid hemorrhage. There is mass effect and a 5 mm rightward midline shift. No skull fractures. -Repeat CT brain without contrast at 6 hours demonstrated a very slight increase in the size of her hematoma, but was essentially stable per radiology. -Initial GCS 10 (opens eyes to sound, no verbal response, and obeys commands). Patient has persistent fixed lateral gaze, right-sided hemiparesis, cannot eat or swallow, and is nonverbal. -Due to patient's prior wishes she has been made palliative care and [facility]. 2. Palliative Care. -Patient is DNR/DNI and according to previous wishes would not want any unnecessary medical intervention or surgically inserted feeding tube. Patient's family has made patient palliative care according to patient's previously stated wishes care and due to above intracranial, subdural and subarachnoid hemorrhage. -Continue comfort care medications including: Patient has required substantial amount of morphine over the last 24 hours approximately 22 mg total, therefore, will start morphine gtt. Continue lorazepam 1 mg IV or PO every 1 hours needed for anxiety or agitation, ondansetron 4 mg SL or IV every 4 hours as needed for nausea, atropine gtt every 2 hours as needed for excessive secretions, and scopolamine patch every 72 hours as needed for excessive secretions. -Continue Tomas catheter for comfort. 3. Hypertension, chronic, present on admission. Stable. -Held home antihypertensives. Code status: DNR/DNI, surrogate decision maker is family whom are present at bedside. VTE prophylaxis: Contraindicated due to intracranial hemorrhage Disposition: The patient remains in minute, unstable for transport and will likely the next 24 hours. Quality VTE Deep Vein Thrombosis/Pulmonary Embolism Present on Admission: No
[2020-03-14] MEDS: MORPHINE 15 MG/ML VIAL 50 MG in DEXTROSE 5 % IN WATER 50 ML IV (20:41)
--- NOTE | 2020-03-14 20:42 | PC.NURSE ---
MORPHINE DRIP STARTED AT 2ML/HR PER JANINE AND PHARMACY
--- NOTE | 2020-03-15 01:08 | PC.NURSE ---
Addendum entered by Bronwyn Lombardo R.N. 03/15/20 02:00: 0126 Patient found with no respirations or heartbeat. Coordinator and INSULATOR APPRENTICE, Stuart, informed. 0145 Daughter, Sarah, informed of . Original Note: Patient is completely nonverbal and does not open eyes. Inspiratory/expiratory rhonchi throughout; patient is mouth breathing with gurgly sounding respirations so Scopolamine patch changed. Unable to hear heart sounds over breath sounds. BT absent. Indwelling catheter with very little urine output. Repositioning q2-3h. Completely immobile at this time. On comfort care.
--- NOTE | 2020-03-15 02:24 | PM.DDS.1 ---
Documented by User: VINNIE Lees 03/15/20 02:34 Discharge Summary History of Illness Narrative: From Admission H and P by Dr. Erma Duron Stacie Pickard is an 84 year old female with PMH of HTN who was found down in her apartment this morning. She had been living independently and doing well per family. She was last seen last evening she lives in independently with only medical history of hypertension. Her neighbor below her her to thought around 630 she heard a thud. Patient presented to the ER around 0830. She has a gaze to the left and not moving her right side. She is not on any known anti-platelet or anticoagulation medication. Patient does follow commands but is unable to communicate. Family at bedside to cooberate history along with review of provider notes. In the ER, vitals were notable for mild tachycardia. CT scan showed a large intracranial hematoma in the left frontal area most likely due to a large intraparenchymal hemorrhage measuring 6.5 x 4.6 x 7.0 cm. There is also a small subdural and subarachnoid hemorrhage. There was mass effect and 5 mm of rightward midline shift. There were no skull fractures. Patient was previously very clear on her desire for comfort measures only in this situation, family states that patient would definitely not want a feeding tube. She was admitted under observation status with comfort measures. CT scan will be repeated at 6 hours to see if there is any progression of her bleeding. Hospital Course Date of Admission: 03/10/20 11:10 Date of : 03/15/20 Consults: 03/11/20 18:57 Consult to Dietitian, Adult Routine Comment: Reason For Exam: end of life care; no consult needed. Ezekiel score Discharge Diagnosis: Intracranial, subdural and subarachnoid hemorrhage Hospital Course: After the diagnosis was made of the intercranial hemmorhage and hematoma, patient's family familiar with the patient's wishes opted to provide palliative comfort care measures to allow for her passing. Plan was initially for her to transfer to a [facility] on hospice but due to her likely of imminent passing, it was decided to provide palliative care for her at [facility]. Objective ECG Impression: Patient is non-responsive, no pulse or respirations. Labs Result Diagrams: 03/10/20 08:43 03/10/20 08:43 Documented by User: Erma Duron DO 03/17/20 20:44 Objective Labs Result Diagrams: 03/10/20 08:43 03/10/20 08:43
--- NOTE | 2020-03-15 10:24 | CM.DPC ---
DCP/continued: Reviewed chart this AM. Patient this AM. Placed call to [facility] informing them that patient would not be coming today. VANESSA
== END 2020-03-15 06:20 | disposition expired | DRG 64 ==
LOC: ED 10:42 → AC 12:02
PROVIDERS: Admitting Provider Internal Medicine; Emergency Provider Emergency Medicine; Referring Provider Emergency Medicine; Visit Provider Internal Medicine
DX: I61.8 Other nontraumatic intracerebral hemorrhage (principal); G93.5 Compression of brain; G81.91 Hemiplegia, unspecified affecting right dominant side; I62.01 Nontraumatic acute subdural hemorrhage; R40.2212 Coma scale, best verbal response, none, at arrival to emergency department; R40.2362 Coma scale, best motor response, obeys commands, at arrival to emergency department; R40.2132 Coma scale, eyes open, to sound, at arrival to emergency department; I10 Essential (primary) hypertension; W19.XXXA Unspecified fall, initial encounter; Y92.039 Unspecified place in apartment as the place of occurrence of the external cause; Z66 Do not resuscitate; Z51.5 Encounter for palliative care
CPT/HCPCS: 36415; 51701; 70450; 80048; 80305; 82962; 85025; 85610; 85730; 87635; 93005; 96374; 99285; J2060; J2270; J2405